=== PATIENT | male | born 1955 | race Caucasian/White ===

== ENCOUNTER 2019-05-30 11:07 | Day surgery (SDC) | payer OTHER, SELFPAY ==
[2019-05-23 11:55] VITALS: BMI 36.6
--- NOTE | 2019-05-30 | DI.RAD.S_ITS ---
PROCEDURE: XR LUMBAR SPINE 2-3V INDICATIONS: L4-L5 LAMINECTOMY FINDINGS: 2 limited intraoperative fluoroscopically stored images of the lower lumbar spine were obtained for intraoperative hardware localization purposes. These images are not meant for diagnostic purposes. Intraoperative findings related to a L4-5 laminectomy and fusion procedure are present. IMPRESSION: Intraoperative images obtained during the patient's lumbar laminectomy and fusion procedure. Dictated by: Dave Oconnell M.D. on 05/30/2019 at 14:34 Approved by: Dave Oconnell M.D. on 05/30/2019 at 14:35
[2019-05-30 11:54] VITALS: BP 158/105; PULSE 87; RESP 20; TEMP 37.2; O2SAT 94; BMI 36.6
[2019-05-30] MEDS: LACTATED RINGERS 1,000 ML 42 ML IV ×2 (12:05→14:56)
--- NOTE | 2019-05-30 13:07 | PM.PREOP ---
Pre-operative Note Interval Note History & Physical reviewed/Exam performed by Physician: Yes Changes to H&P: No
--- NOTE | 2019-05-30 13:18 | P.OP_ITS ---
Operative Date/Time/Diagnoses Date of procedure: 05/30/19 Time of procedure: 15:09 Pre-op diagnosis: Lumbar stenosis with radiculopathy Post-op diagnosis: same Procedure & Clinicians Procedure: L4-5 laminectomy Use of microscope Placement of an epidural catheter Same procedure as scheduled: Yes Indications: [age] year old male with intractable pain from stenosis. They had failed conservative management and requested operative intervention. Risks and benefits of surgery were discussed and appropriate consents were obtained. Surgeon: Jose Antonio Flores Laminate Floor Installer: Araceli Aj Anesthesia Type: General Operative Notes Findings: None Closure Type: primary Specimen(s): none sent Estimated Blood Loss (mL): 10 Blood products transfused: none Procedure in detail: Patient was brought to the operating room and intubated on the table. A time-out was performed. There were rolled over the well-padded prone position on the Samuel table. The back was prepped and draped in standard sterile fashion. Preoperative antibiotics were given. Using fluoroscopy, a 3 cm incision was made onto the right side at the L4-5 level. I elected to use this right-sided approach due to the patient's size to get the best diagonal approach to be able to decompress the left subarticular region without excessive facet resection. We used Bovie to come down to and split the fascia. We then used the NuVasive MaXcess dilators with fluoroscopy and then opened our retractors. The soft tissue was cleared off with Bovie, a marker was placed, an x-ray was taken to confirm positioning. We then brought in the microscope. A combination of high-speed bur and Kerrison were used to perform a laminectomy at L4-5. We carefully depressed the dura and reach to the left side clearing off the facet and ligamentous hypertrophy. We undermined the facet to clear up the subarticular region and probed and then cleared out the foramen. The retractor was moved around so that we could decompress caudally and cephalad. We then could sweep the ball probe cephalad, caudally and out the neural foramen and everything was open. Once everything was adequately decompressed, the wound was copiously irrigated. An epidural catheter was filled with 100 mcg of fentanyl and 8 mL of 0.25% Marcaine. The dura was carefully depressed under the laminotomy site and the catheter was advanced 6 cm cephalad. The retractor was removed and the fascia was closed. The epidural catheter was then injected without resistance and removed. Vancomycin powder was placed in the wound. Superficial and skin were closed. Sterile dressing was placed. The patient was then rolled over, transferred to the stretcher, and brought to recovery room without complications. Complications: none Post-operative Condition: stable Disposition: PACU Plan for aftercare: Outpatient. May start activity as tolerated in 2 weeks and physical therapy at that time.
[2019-05-30] MEDS: CEFAZOLIN 2 GM/100 ML FROZ.PIGGY IV (13:55)
[2019-05-30] MEDS: SODIUM CHLORIDE 0.9% 1,000 ML, GENTAMICIN 80 MG IRR (14:15)
[2019-05-30] MEDS: THROMBIN (RECOMBINANT) 5,000 UNIT VIAL 5000 UNIT TOP (14:16)
[2019-05-30] MEDS: VANCOMYCIN 1,000 MG VIAL 1000 MG TOP (14:16)
[2019-05-30] MEDS: BUPIVACAINE 0.25% (PF) 8 ML, fentaNYL 100 MCG INJ (14:17)
--- NOTE | 2019-05-30 14:20 | SUR.OPER ---
Prone on spine table, head in foam head support, padded chest and pelvic supports, gel pad at knees, lower legs supported by pillows; nipples, genitalia and toes free of pressure, arms secured on foam padded arm boards at <90 degrees abduction. Tape over blanket at thigh secured to table.
[2019-05-30 15:20] VITALS: BP 142/98; PULSE 85; RESP 13; TEMP 36.1; O2SAT 95
[2019-05-30 15:25] VITALS: BP 128/78; PULSE 81; RESP 13; O2SAT 97
[2019-05-30 15:30] VITALS: BP 155/84; PULSE 77; RESP 15; TEMP 36.9; O2SAT 98
[2019-05-30 15:36] VITALS: BP 145/90; PULSE 74; RESP 16; TEMP 36.9; O2SAT 98
== END 2019-05-30 15:58 | disposition home or self-care (01) ==
PROVIDERS: PCP Internal Medicine; Visit Provider Orthopaedic Surgery
PROC: (CPT 63047; principal; 2019-05-30 13:45)
DX: M48.062 Spinal stenosis, lumbar region with neurogenic claudication (principal); S39.012A Strain of muscle, fascia and tendon of lower back, initial encounter; M54.16 Radiculopathy, lumbar region; G47.30 Sleep apnea, unspecified; I10 Essential (primary) hypertension; E66.9 Obesity, unspecified; Z68.38 Body mass index [BMI] 38.0-38.9, adult
CPT/HCPCS: 63047; 72100; 76000; J0690; J1100; J1885; J2250; J2405; J2704; J3010